=== PATIENT | female | born 1940 | race Caucasian/White ===

== ENCOUNTER 2021-12-16 07:28 | Inpatient (IN) ==
[~2021-12-16 07:28] MED LIST: 0.9 % SODIUM CHLORIDE 250 ML IV SCH; IPRATROPIUM/ALBUTEROL 3 ML AMPUL.NEB NEB PRN; SCOPOLAMINE 1 PATCH PATCH TOPICAL PRN; ceFAZolin 2 GM in DEXTROSE 5% IN WATER 50 ML IV SCH
[2021-12-16 08:37] LABS: Basophils # (Auto) 0.03 K/mcL (0.00-0.30); Basophils % (Auto) 0.5 % (0.0-2.0); Eosinophils # (Auto) 0.04 K/mcL (0.00-0.70); Eosinophils % (Auto) 0.7 % (0.0-7.0); Hematocrit 36.5 % (34.1-44.9); Hemoglobin 11.4 g/dL (11.2-15.7); Lymphocytes # (Auto) 1.69 K/mcL (1.50-4.80); Lymphocytes % (Auto) 28.7 % (15.5-49.0); Mean Cell Volume 91.5 fL (80.0-100.0); Mean Corpuscular HGB Conc 31.2 g/dL (31.0-36.0); Mean Platelet Volume 10.1 fL (7.4-10.4); Monocytes # (Auto) 0.59 K/mcL (0.10-0.90); Neutrophils % (Auto) 60.1 % (38.0-78.0); Platelet Count 288 K/mcL (140-440); RBC 3.99 M/mcL (3.59-5.38); WBC 5.9 K/mcL (4.5-11.0)
[2021-12-16 09:00] LABS: Blood Urea Nitrogen 13 mg/dL (8-23); Calcium 9.1 mg/dL (8.6-10.4); Carbon Dioxide 21 mmol/L (22-30); Chloride 103 mmol/L (96-108); Glomerular Filtration Rate 70; Glucose 107 mg/dL (70-105)
[2021-12-16 09:58] LABS: Appearance,Urine HAZY (Clear); Bacteria,Urine FEW /hpf (0); Bilirubin,Urine Negative (Negative); Color,Urine YELLOW; Culture Indicated,Urine Yes; Glucose,Urine (UA) Negative (Negative); Ketones,Urine Negative (Negative); Leukocyte Esterase,Urine 25 /uL (Negative); Mucus,Urine MOD /hpf; Nitrate,Urine Negative (Negative); Protein,Urine Negative (Negative); Urine Amorphous Crystals FEW /hpf; Urine Blood Negative (Negative); Urine Hyaline Cast 3 /lph (0-2); Urine RBC 3 /hpf (0-3); Urine Squamous Epithelial Cell 1 /hpf (0-4); Urine WBC 4 /hpf (0-4); Urobilinogen,Urine Negative
--- NOTE | 2021-12-16 10:09 | EKG ---
[facility] Test Date: 2021-12-16 Pat Name: Shabana Domínguez Department: RT Room: Gender: Female Instrument Repair Specialist: : [id number] Requested By: Enrike Charles Order Number: [id number] Reading MD: Feliciano Min M.D. Measurements Intervals [place] Rate: 83 P: 2 MS: 176 QRS: -40 QRSD: 102 T: 20 QT: 402 QTc: 473 Interpretive Statements Sinus rhythm Multiform ventricular premature complexes Inferior infarct, old Consider anterior infarct Electronically Signed On 12-16-2021 10:09:41 PDT by Feliciano Min M.D. /store/[email or web address]/[id number]
[2021-12-16] MEDS ORDERED: DEXAMETHASONE 10 MG/ML VIAL ONE (10:17)
[2021-12-16] MEDS ORDERED: GLYCOPYRROLATE 0.2 MG/ML VIAL IV ONE (10:17)
[2021-12-16] MEDS ORDERED: ONDANSETRON 4 MG/2 ML VIAL ONE (10:17)
[2021-12-16] MEDS ORDERED: MAGNESIUM SULFATE 2 GM/50 ML BAG IV ONE (10:17)
[2021-12-16] MEDS ORDERED: KETAMINE 50 MG/ML Syringe (ANEST) IV ONE (10:17)
[2021-12-16] MEDS ORDERED: TRANEXAMIC ACID 1,000 MG/10 ML VIAL ONE (10:17)
[2021-12-16] MEDS ORDERED: PROPOFOL 200 MG/20 ML VIAL IV ONE (10:17)
[2021-12-16] MEDS ORDERED: LIDOCAINE HCL/PF 100 MG/5 ML SYRINGE IV ONE (10:17)
[2021-12-16] MEDS ORDERED: fentaNYL 250 MCG/5 ML VIAL IV ONE (10:17)
[2021-12-16] MEDS ORDERED: GENTAMICIN SULFATE 800 MG/20 ML VIAL IR ONE (10:37)
[2021-12-16] MEDS ORDERED: LIDOCAINE 1% 20 ML VIAL SQ ONE (10:38)
[2021-12-16] MEDS ORDERED: PROMETHAZINE 25 MG/ML VIAL IV PRN (10:56)
[2021-12-16] MEDS ORDERED: NALOXONE HCL 0.4 MG/ML VIAL IV PRN (10:56)
[2021-12-16] MEDS ORDERED: IPRATROPIUM/ALBUTEROL 3 ML AMPUL.NEB NEB PRN (10:56)
[2021-12-16] MEDS ORDERED: ONDANSETRON 4 MG/2 ML VIAL IV PRN ×3 (10:56→11:58)
[2021-12-16] MEDS ORDERED: LACTATED RINGERS 250 ML IV PRN (10:56)
[2021-12-16] MEDS ORDERED: LACTATED RINGERS 1,000 ML IV SCH (11:00)
--- NOTE | 2021-12-16 11:44 | Discharge Plan ---
Discharge Plan Patient/Caregiver Discharge Instructions Activity: as per physical therapy Diet: Regular Diet Prescriptions: New hydrocodone-acetaminophen 10-325 mg tablet 1 - 2 tab PO Q4H PRN (Reason: pain) Qty: 75 0RF aspirin [Ecotrin Low Strength] 81 mg tablet,delayed release (DR/EC) 81 mg PO BID Qty: 60 0RF docusate sodium 100 mg capsule 100 mg PO BID Qty: 60 0RF No Action levothyroxine 125 mcg tablet 125 mcg PO DAILY 0RF Rx Instructions: unknown PO unknown; zolpidem 10 mg tablet 10 mg PO HS 0RF Rx Instructions: unknown PO unknown; sertraline 50 mg tablet See Rx Instructions PO .COMPLEX 0RF Rx Instructions: unknown PO unknown; ropinirole 0.25 mg tablet See Rx Instructions PO .COMPLEX 0RF Rx Instructions: unknown PO unknown; mecobalamin (vitamin B12) 1,000 mcg tablet,chewable See Rx Instructions PO .COMPLEX 0RF Rx Instructions: unknown PO unknown; pyridoxine (vitamin B6) 100 mg tablet See Rx Instructions PO .COMPLEX 0RF Rx Instructions: unknown PO unknown; multivitamin Tablet See Rx Instructions PO .COMPLEX 0RF Rx Instructions: unknown PO unknown; calcium carbonate [Calcium 500] 500 mg calcium (1,250 mg) tablet See Rx Instructions PO .COMPLEX 0RF Rx Instructions: unknown PO unknown; biotin 1,000 mcg tablet,chewable See Rx Instructions PO .COMPLEX 0RF Rx Instructions: unknown PO unknown; magnesium citrate 100 mg tablet See Rx Instructions PO .COMPLEX 0RF Rx Instructions: unknown PO unknown; Other Ambulatory Orders: Discharge Referrals (Routine) Location: None Selected Ordered By: Segundo Rosales Toilet Riser Discharge Order (ONCE) Location: None Selected Ordered By: Segundo Rosales Walker (ONCE) Location: None Selected Ordered By: Segundo Rosales Follow Up Plan Follow up with: Segundo Rosales PA-C [Physician Kiln Labourer] - Patient Disposition: Home, Self-Care Prognosis: Good Rehab Potential: Good I certify that the patient requires SNF services: No Overall status at discharge: patient is progressing back to baseline Discharge Orders: Discharge Order (Routine); Ordered 12/17/21 Ordered By: Segundo Rosales
[2021-12-16] MEDS ORDERED: TRANEXAMIC ACID 1,000 MG/10 ML VIAL IV ONE (11:45)
[2021-12-16] MEDS ORDERED: BENZOCAINE/MENTHOL 1 LOZENGE PO PRN (11:45)
[2021-12-16] MEDS ORDERED: MAGNESIUM HYDROXIDE 30 ML ORAL.SUSP PO PRN (11:45)
[2021-12-16] MEDS ORDERED: TEMAZEPAM 15 MG CAPSULE PO PRN (11:45)
[2021-12-16] MEDS ORDERED: FLEETS ADULT ENEMA PR PRN (11:45)
[2021-12-16] MEDS ORDERED: ACETAMINOPHEN 325 MG TABLET PO PRN (11:45)
[2021-12-16] MEDS ORDERED: POLYETHYLENE GLYCOL 3350 17 GM PACKET PO PRN (11:45)
[2021-12-16] MEDS ORDERED: BISACODYL 10 MG SUPP.RECT PR PRN (11:45)
--- NOTE | 2021-12-16 11:45 | Brief Operative Note ---
Brief Operative Note Date of procedure: 12/16/21 Pre-op diagnosis: Left leg gangrene Post-op diagnosis: same Procedure: left leg below knee amputation Grafts/Implants: Yes Anesthesia: GETA Complications: none Surgeon: Enrike Charles Puff Iron Operator: Segundo Rosales Estimated blood loss (cc): 200 Tourniquet Time (Minutes): 30 Specimens Removed/Pathology: none sent Condition: stable Disposition: PACU
[2021-12-16] MEDS: fentaNYL 100 MCG/2 ML VIAL IV PRN ×3 (12:11→12:18)
[2021-12-16] MEDS: 0.45 % SODIUM CHLORIDE 1,000 ML IV SCH ×2 (13:09→23:18)
--- NOTE | 2021-12-16 13:57 | Operative Note ---
DATE OF OPERATION: 12/16/2021 PREOPERATIVE DIAGNOSIS: Left leg gangrene with a large open wound of about 6 x 5 cm, with purulence and cellulitis present. POSTOPERATIVE DIAGNOSES: Left leg gangrene with a large open wound of about 6 x 5 cm, with purulence and cellulitis present. PROCEDURE: Left below-knee amputation. SURGEON: Enrike Charles M.D. SCANNING CLERK: Segundo Rosales PA-C. This providers expertise and technical skill were required throughout the case. The GUILHERME assisted with preoperative coordination, intraoperative retraction, wound closure, and dressing and splint application, as well as postoperative documentation and care coordination. ANESTHESIA: General LMA anesthesia. COMPLICATIONS: None. TOURNIQUET TIME: About 30 minutes. ESTIMATED BLOOD LOSS: About 200 mL at 275 mmHg. IMPLANTS: No implants were used. DESCRIPTION OF PROCEDURE: The patient was brought to the operating room, put to sleep with general LMA anesthesia. Once asleep, the patient had the left leg sterilely prepped and draped in the usual sterile fashion. We measured 15 cm from the tubercle and the circumference of the leg was measured. One-quarter of the circumference was used for the pivot point, the length of the posterior flap was one-half of the circumference of the leg. With these measurements in place, we then made our skin incision and then we cut through the fascial layer of the muscle. We cut through the bone with a reciprocating saw, making sure to shorten the fibula 2 cm shorter. We then used the amputation knife for the posteriorly amputation of the muscle layer. Once this was done, we then deflated the tourniquet and controlled bleeding. We preinjected the tibial nerve posteriorly and this was resected about 2 cm from the bony cut. The vein and tibial artery were also ligated using a stick tie. We also used stick ties for the saphenous and sural, peroneal arteries, and vein. We irrigated thoroughly. We had a little bit of bleeding shortly after, only a few mL. Total volume was about 200 mL. Three drill holes were placed in the distal tibia and then we used these to pass the FiberWire into the fascial layer. This was tied onto the end of the bone. Once very secure, we then repaired the fascial layer with a Stratafix x2, closed the skin layer with Stratafix x2 and interrupted 2-0 Vicryl and Prolene. We then used cheryl to reinforce the repair. All skin edges were pink and bleeding. Sterile bandage was applied. The patient tolerated this well. RBH:kh Job ID: [id number] Doc ID: [id number] Enrike Charles MD
[2021-12-16] MEDS ORDERED: 0.9 % SODIUM CHLORIDE 10 ML SYRINGE IV SCH ×2 (14:00)
[2021-12-16] MEDS: HYDROmorphone 1 MG/ML SYRINGE IV PRN (14:00)
[2021-12-16] MEDS: 0.9 % SODIUM CHLORIDE 10 ML SYRINGE IV SCH ×2 (17:44→21:01)
[2021-12-16] MEDS ORDERED: ceFAZolin 1 GM VIAL ONE (17:45)
[2021-12-16] MEDS: ceFAZolin 1 GM VIAL IV SCH (17:51)
[2021-12-16] MEDS: HYDROcodone/APAP 10/325MG TABLET PO PRN ×3 (18:54→23:18)
[2021-12-16] MEDS ORDERED: SENNOSIDES 1 TABLET PO SCH (21:00)
[2021-12-16] MEDS: SENNOSIDES 1 TABLET PO SCH (21:00)
[2021-12-16] MEDS: ZOLPIDEM 5 MG TABLET PO SCH (21:00)
[2021-12-16] MEDS ORDERED: DOCUSATE SODIUM 100 MG CAPSULE PO SCH (21:00)
[2021-12-16] MEDS: DOCUSATE SODIUM 100 MG CAPSULE PO SCH (21:00)
[2021-12-17] MEDS: ceFAZolin 1 GM VIAL IV SCH (01:27)
[2021-12-17] MEDS: HYDROcodone/APAP 10/325MG TABLET PO PRN ×2 (04:54→16:09)
[2021-12-17] MEDS: 0.9 % SODIUM CHLORIDE 10 ML SYRINGE IV SCH ×3 (04:55→21:08)
[2021-12-17] MEDS: LEVOTHYROXINE 125 MCG TABLET PO SCH (08:46)
[2021-12-17] MEDS: MAGNESIUM OXIDE 400 MG TABLET PO SCH (08:46)
[2021-12-17] MEDS: CYANOCOBALAMIN (VITAMIN B-12) 500 MCG TABLET PO SCH (08:46)
[2021-12-17] MEDS: MULTIVIT,THER IRON,CA,FA & MIN 1 TABLET PO SCH (08:47)
[2021-12-17] MEDS: SERTRALINE 50 MG TABLET PO SCH (08:47)
[2021-12-17] MEDS: DOCUSATE SODIUM 100 MG CAPSULE PO SCH ×2 (08:47→21:08)
--- NOTE | 2021-12-17 09:54 | Orthopedic Progress Note ---
SUBJECTIVE Subjective Patient information: Note initiated : 12/17/21 at 9:49 am Service Date, if different from initiated Date: [] Patient: Shabana Domínguez 81 y/o F admitted on 12/16/21 for Left Lower Leg Amputation Through Tibia & Fibula. Chief Complaint: [] Principal diagnosis: minimal pain but eating well Constitutional Vitals: Vital Signs Temp Pulse Resp BP Pulse Ox 97.3 F 82 18 138/80 97 12/17/21 07:34 12/17/21 07:34 12/17/21 07:34 12/17/21 07:34 12/17/21 07:34 Period Temp Pulse Resp BP Sys/Howe Pulse Ox Last 24 Hr 97 F-98.6 F 71-93 10-19 106-159/60-105 86-100 Intake and Output 12/16/21 12/17/21 12/17/21 21:59 05:59 13:59 Intake Total 480 1240 0 Output Total 3 451 Balance 477 789 0 Intake & Output: Intake & Output 12/16/21 12/17/21 12/17/21 21:59 05:59 13:59 Intake Total 480 1240 0 Output Total 3 451 Balance 477 789 0 Intake: IV 1000 Sodium Chloride 0.45% 1,000 ml 1000 @ 100 mls/hr IV .Q10H [facility] Rx#: [id number] Oral 480 240 0 Output: Void Amount 450 # of times incontinent of urine 3 1 Other: Percent of Meal Consumed NPO Nourishment/Supplement name NPO until 1230, pt was in surgry. Urine Appearance Clear Clear Urine Color Dark Yellow Urine Odor Normal # Voids 1 1 General appearance: obese Extremities Exam Extremities exam: Present joint swelling and Foot pink and warm OBJ DATA Labs CBC & Chem 7: 12/17/21 05:26 12/16/21 07:43 Labs: Abnormal Lab Results 12/17/21 12/16/21 12/16/21 05:26 08:22 07:43 Hct 30.9 L RDW Potassium 3.1 L Carbon Dioxide 21 L Glucose 107 H Urine Appearance Hazy A Ur Leukocyte Esterase 25 A Amorphous Crystals Few A Urine Bacteria Few A Hyaline Casts 3 H Urine Mucus Mod A 12/16/21 07:43 Hct RDW 16.0 H Potassium Carbon Dioxide Glucose Urine Appearance Ur Leukocyte Esterase Amorphous Crystals Urine Bacteria Hyaline Casts Urine Mucus Meds: Medications Acetaminophen (Acetaminophen 325 Mg Tablet) 650 mg PO Q6HP PRN; Protocol PRN Reason: Per Pain Protocol/Fever > 101 Hydrocodone Bitart/Acetaminophen (Hydrocodone/Apap 10/325mg Tablet) 1 - 2 tab PO Q4HP PRN; Protocol PRN Reason: Per Pain Protocol Last Admin: 12/17/21 04:54 Dose: 1 tab Documented by: Bisacodyl (Bisacodyl 10 Mg Supp.Rect) 10 mg [place] Q2-3DAYS PRN PRN Reason: Constipation Cyanocobalamin (Cyanocobalamin (Vitamin B-12) 500 Mcg Tablet) 500 mcg PO DAILY [facility] Last Admin: 12/17/21 08:46 Dose: 500 mcg Documented by: Docusate Sodium (Docusate Sodium 100 Mg Capsule) 100 mg PO BID [facility] Last Admin: 12/17/21 08:47 Dose: 100 mg Documented by: Hydromorphone HCl (Hydromorphone 1 Mg/Ml Syringe) 0.5 - 2 mg IV Q2HP PRN; Protocol PRN Reason: Per Pain Protocol Last Admin: 12/16/21 14:00 Dose: 0.5 mg Documented by: Sodium Chloride (Sodium Chloride 0.45%) 1,000 mls @ 100 mls/hr IV .Q10H [facility] Last Admin: 12/16/21 23:18 Dose: 100 mls/hr Documented by: Iron Carb/Multivit/[place]/Folic Acid (Multivit,Ther Iron,Ca,Fa & Min 1 Tablet) 1 tab PO DAILY [facility] Last Admin: 12/17/21 08:47 Dose: 1 tab Documented by: Levothyroxine Sodium (Levothyroxine 125 Mcg Tablet) 125 mcg PO DAILY [facility] Last Admin: 12/17/21 08:46 Dose: 125 mcg Documented by: Magnesium Hydroxide (Magnesium Hydroxide 30 Ml Oral.Susp) 30 ml PO BIDP PRN PRN Reason: Constipation Magnesium Oxide (Magnesium Oxide 400 Mg Tablet) 200 mg PO DAILY [facility] Last Admin: 12/17/21 08:46 Dose: 200 mg Documented by: Ondansetron HCl (Ondansetron 4 Mg/2 Ml Vial) 4 mg IV Q4HP PRN PRN Reason: Nausea And Vomiting Ondansetron HCl (Ondansetron 4 Mg/2 Ml Vial) 4 mg IV Q6HP PRN PRN Reason: Nausea And Vomiting Biotin 1,000 Mcg (Tablet,Chewable) 1 dose PO DAILY [facility] Last Admin: 12/17/21 08:47 Dose: Not Given Documented by: Pneumococcal Polyvalent Vaccine (Pneumococcal 23-Chey P-Sac Vac 0.5 Ml Syringe) 0.5 ml IM .ONCE ONE Stop: 12/17/21 10:01 Polyethylene Glycol (Polyethylene Glycol 3350 17 Gm Packet) 17 gm PO DAILYP PRN PRN Reason: Constipation Senna (Sennosides 1 Tablet) [address] [facility] Last Admin: 12/16/21 21:00 Dose: 2 tab Documented by: Sertraline HCl (Sertraline 50 Mg Tablet) 50 mg PO DAILY [facility] Last Admin: 12/17/21 08:47 Dose: 50 mg Documented by: Sodium Biphosphate/Sodium Phosphate (Fleets Adult Enema) 1 dose FL Q3-4DAYS PRN PRN Reason: Constipation Sodium Chloride (0.9 % Sodium Chloride 10 Ml Syringe) 10 ml IV Q8 [facility] Last Admin: 12/17/21 04:55 Dose: Not Given Documented by: Temazepam (Temazepam 15 Mg Capsule) 15 mg PO HSP PRN PRN Reason: Insomnia Throat Lozenges (Benzocaine/Menthol 1 Lozenge) 1 lozenge PO PRN PRN PRN Reason: Sore Throat Zolpidem Tartrate (Zolpidem 5 Mg Tablet) [address] [facility] Last Admin: 12/16/21 21:00 Dose: 10 mg Documented by: Impressions Impression: slow to walk and is weak with arms ABG Interpretation Interpretation: normal A/P Assessment and plan (1) History of surgery: Assessment and plan: feeling well Plan: Roll-a-bout to walk dc to snf Status: Acute Comment: HELLEN #1 L3-4 w/sed 02/27/20 Plan dc to snf Narrative A/P Narrative: dc to snf secondary to immobility Time Spent With Patient Time: Total time spent is greater than 50% in coordination of care (as documented) at patient's floor/unit and/or counseling patient: Total time spent with greater than 50% in coordination of care (as documented) at patient's floor/unit and/or counseling patient:: less than 15 minutes
[2021-12-17] MEDS ORDERED: PNEUMOCOCCAL 23-VAL P-SAC VAC 0.5 ML SYRINGE IM ONE (10:00)
[2021-12-17] MEDS: 0.45 % SODIUM CHLORIDE 1,000 ML IV SCH ×2 (10:50→18:22)
[2021-12-17] MEDS: HYDROmorphone 1 MG/ML SYRINGE IV PRN (11:11)
[2021-12-17] MEDS: SENNOSIDES 1 TABLET PO SCH (21:08)
[2021-12-17] MEDS: ZOLPIDEM 5 MG TABLET PO SCH (21:08)
[2021-12-18] MEDS: HYDROcodone/APAP 10/325MG TABLET PO PRN (00:48)
[2021-12-18] MEDS: 0.9 % SODIUM CHLORIDE 10 ML SYRINGE IV SCH ×2 (04:49→13:18)
[2021-12-18] MEDS: SERTRALINE 50 MG TABLET PO SCH (09:13)
[2021-12-18] MEDS: DOCUSATE SODIUM 100 MG CAPSULE PO SCH ×2 (09:13→22:54)
[2021-12-18] MEDS: CYANOCOBALAMIN (VITAMIN B-12) 500 MCG TABLET PO SCH (09:13)
[2021-12-18] MEDS: MAGNESIUM OXIDE 400 MG TABLET PO SCH (09:14)
[2021-12-18] MEDS: MULTIVIT,THER IRON,CA,FA & MIN 1 TABLET PO SCH (09:14)
[2021-12-18] MEDS: LEVOTHYROXINE 125 MCG TABLET PO SCH (09:14)
[2021-12-18] MEDS: ZOLPIDEM 5 MG TABLET PO SCH (22:54)
[2021-12-18] MEDS: SENNOSIDES 1 TABLET PO SCH (22:54)
[2021-12-19] MEDS: 0.9 % SODIUM CHLORIDE 10 ML SYRINGE IV SCH (00:11)
[2021-12-19] MEDS: LEVOTHYROXINE 125 MCG TABLET PO SCH (08:47)
[2021-12-19] MEDS: MULTIVIT,THER IRON,CA,FA & MIN 1 TABLET PO SCH (08:47)
[2021-12-19] MEDS: MAGNESIUM OXIDE 400 MG TABLET PO SCH (08:48)
[2021-12-19] MEDS: SERTRALINE 50 MG TABLET PO SCH (08:48)
[2021-12-19] MEDS: DOCUSATE SODIUM 100 MG CAPSULE PO SCH ×2 (08:48→20:45)
[2021-12-19] MEDS: CYANOCOBALAMIN (VITAMIN B-12) 500 MCG TABLET PO SCH (08:55)
[2021-12-19] MEDS: ZOLPIDEM 5 MG TABLET PO SCH (20:44)
[2021-12-19] MEDS: SENNOSIDES 1 TABLET PO SCH (20:45)
--- NOTE | 2021-12-20 07:57 | Orthopedic Progress Note ---
SUBJECTIVE Subjective Patient information: Note initiated : 12/20/21 at 7:54 am Service Date, if different from initiated Date: [] Patient: Shabana Domínguez 81 y/o F admitted on 12/16/21 for Left Lower Leg Amputation Through Tibia & Fibula. Chief Complaint: [awaiting for snf] Principal diagnosis: minimal pain but eating well Constitutional Vitals: Vital Signs Temp Pulse Resp BP Pulse Ox 97.9 F 91 H 18 141/71 95 12/20/21 02:53 12/20/21 02:53 12/20/21 02:53 12/20/21 02:53 12/20/21 02:53 Period Temp Pulse Resp BP Sys/Howe Pulse Ox Last 24 Hr 97.8 F-99.5 F 72-102 - 118-141/63-76 93-97 Intake and Output 12/19/21 12/20/21 12/20/21 21:59 05:59 13:59 Intake Total 600 Output Total 2 3 Balance -2 597 Weight 237 lb Intake & Output: Intake & Output 12/19/21 12/20/21 12/20/21 21:59 05:59 13:59 Intake Total 600 Output Total 2 3 Balance -2 597 Weight 237 lb Intake: Oral 600 Output: # of times incontinent of urine 2 3 Other: # Voids 1 Neurological Exam Neurological exam: Present CN II-XII intact and oriented X3 OBJ DATA Labs CBC & Chem 7: 12/17/21 05:26 12/16/21 07:43 Meds: Medications Acetaminophen (Acetaminophen 325 Mg Tablet) 650 mg PO Q6HP PRN; Protocol PRN Reason: Per Pain Protocol/Fever > 101 Last Admin: 12/19/21 08:48 Dose: 650 mg Documented by: Hydrocodone Bitart/Acetaminophen (Hydrocodone/Apap 10/325mg Tablet) 1 - 2 tab PO Q4HP PRN; Protocol PRN Reason: Per Pain Protocol Last Admin: 12/18/21 00:48 Dose: 1 tab Documented by: Bisacodyl (Bisacodyl 10 Mg Supp.Rect) 10 mg [place] Q2-3DAYS PRN PRN Reason: Constipation Cyanocobalamin (Cyanocobalamin (Vitamin B-12) 500 Mcg Tablet) 500 mcg PO DAILY [facility] Last Admin: 12/19/21 08:55 Dose: 500 mcg Documented by: Docusate Sodium (Docusate Sodium 100 Mg Capsule) 100 mg PO BID [facility] Last Admin: 12/19/21 20:45 Dose: 100 mg Documented by: Hydromorphone HCl (Hydromorphone 1 Mg/Ml Syringe) 0.5 - 2 mg IV Q2HP PRN; Protocol PRN Reason: Per Pain Protocol Last Admin: 12/17/21 11:11 Dose: 0.5 mg Documented by: Iron Carb/Multivit/[place]/Folic Acid (Multivit,Ther Iron,Ca,Fa & Min 1 Tablet) 1 tab PO DAILY [facility] Last Admin: 12/19/21 08:47 Dose: 1 tab Documented by: Levothyroxine Sodium (Levothyroxine 125 Mcg Tablet) 125 mcg PO DAILY [facility] Last Admin: 12/19/21 08:47 Dose: 125 mcg Documented by: Magnesium Hydroxide (Magnesium Hydroxide 30 Ml Oral.Susp) 30 ml PO BIDP PRN PRN Reason: Constipation Magnesium Oxide (Magnesium Oxide 400 Mg Tablet) 200 mg PO DAILY [facility] Last Admin: 12/19/21 08:48 Dose: 200 mg Documented by: Ondansetron HCl (Ondansetron 4 Mg/2 Ml Vial) 4 mg IV Q4HP PRN PRN Reason: Nausea And Vomiting Ondansetron HCl (Ondansetron 4 Mg/2 Ml Vial) 4 mg IV Q6HP PRN PRN Reason: Nausea And Vomiting Biotin 1,000 Mcg (Tablet,Chewable) 1 dose PO DAILY [facility] Last Admin: 12/19/21 08:53 Dose: Not Given Documented by: Polyethylene Glycol (Polyethylene Glycol 3350 17 Gm Packet) 17 gm PO DAILYP PRN PRN Reason: Constipation Senna (Sennosides 1 Tablet) 2 tab PO HS [facility] Last Admin: 12/19/21 20:45 Dose: 2 tab Documented by: Sertraline HCl (Sertraline 50 Mg Tablet) 50 mg PO DAILY [facility] Last Admin: 12/19/21 08:48 Dose: 50 mg Documented by: Sodium Biphosphate/Sodium Phosphate (Fleets Adult Enema) 1 dose [place] Q3-4DAYS PRN PRN Reason: Constipation Temazepam (Temazepam 15 Mg Capsule) 15 mg PO HSP PRN PRN Reason: Insomnia Last Admin: 12/17/21 23:10 Dose: 15 mg Documented by: Throat Lozenges (Benzocaine/Menthol 1 Lozenge) 1 lozenge PO PRN PRN PRN Reason: Sore Throat Zolpidem Tartrate (Zolpidem 5 Mg Tablet) 10 mg PO HS [facility] Last Admin: 12/19/21 20:44 Dose: 10 mg Documented by: Impressions Impression: doing well A/P Narrative A/P Narrative: doing well Plan of Treatment: nc home Time Spent With Patient Time: Total time spent is greater than 50% in coordination of care (as documented) at patient's floor/unit and/or counseling patient: Total time spent with greater than 50% in coordination of care (as documented) at patient's floor/unit and/or counseling patient:: less than 15 minutes Critical Care Time: No
[2021-12-20] MEDS: CYANOCOBALAMIN (VITAMIN B-12) 500 MCG TABLET PO SCH (09:00)
[2021-12-20] MEDS: SERTRALINE 50 MG TABLET PO SCH (09:00)
[2021-12-20] MEDS: DOCUSATE SODIUM 100 MG CAPSULE PO SCH (09:00)
[2021-12-20] MEDS: MAGNESIUM OXIDE 400 MG TABLET PO SCH (09:00)
[2021-12-20] MEDS: LEVOTHYROXINE 125 MCG TABLET PO SCH (09:01)
[2021-12-20] MEDS: MULTIVIT,THER IRON,CA,FA & MIN 1 TABLET PO SCH (09:01)
== END 2021-12-20 11:11 | DRG 240 ==
LOC: MEDSUR 07:28 → EDSTATUS 09:45
PROVIDERS: ADMIT Orthopaedic Surgery; ATTEND Orthopaedic Surgery